=== PATIENT | female | born 1970 | race Caucasian/White ===

== ENCOUNTER 2016-10-27 23:07 | Emergency (ER) | payer OTHER ==
[2016-10-28 00:14] LABS: MEAN CORPUSCULAR HEMOGLOBIN 29.7 pg (27.0-33.0); MEAN CORPUSCULAR HGB CONC 32.8 g/dl (32.0-36.5); MEAN CORPUSCULAR VOLUME 90.6 fl (80.0-96.0); RED CELL DISTRIBUTION WIDTH 14.1 % (11.5-14.5); WHITE BLOOD COUNT 8.7 K/mm3 (4.0-10.0)
[2016-10-28 00:55] LABS: AMPHETAMINES LEVEL URINE NEGATIVE (NEGATIVE); BENZODIAZEPINES URINE NEGATIVE (NEGATIVE); COCAINE METABOLITE URINE NEGATIVE (NEGATIVE); CONTROL LINE INT CTR LINE PRESENT; METHADONE URINE NEGATIVE (NEGATIVE); OPIATES URINE NEGATIVE (NEGATIVE); TRICYCLIC ANTIDEPRESS URINE NEGATIVE (NEGATIVE)
[2016-10-28 01:04] LABS: ALBUMIN 4.3 GM/DL (3.2-5.2); ALKALINE PHOSPHATASE 52 U/L (45-117); ALT/SGPT 19 U/L (12-78); ANION GAP 12 MEQ/L (8-16); AST/SGOT 18 U/L (15-37); BILIRUBIN,DIRECT 0.2 MG/DL (0.0-0.2); BILIRUBIN,TOTAL 0.5 MG/DL (0.2-1.0); BLOOD UREA NITROGEN 7 MG/DL (7-18); CALCIUM LEVEL 9.1 MG/DL (8.5-10.1); CARBON DIOXIDE LEVEL 25 MEQ/L (21-32); CHLORIDE LEVEL 103 MEQ/L (98-107); CREATININE FOR GFR 0.86 MG/DL (0.55-1.02); GLOMERULAR FILTRATION RATE > 60.0 (>58); GLUCOSE, FASTING 156 MG/DL (70-105); POTASSIUM SERUM 3.4 MEQ/L (3.5-5.1); SODIUM LEVEL 140 MEQ/L (136-145); TOTAL PROTEIN 7.6 GM/DL (6.4-8.2)
[2016-10-28 01:54] LABS: T UPTAKE 35 % (30-39); THYROXINE (T4) 10.6 UG/DL (4.5-12.0)
--- NOTE | 2016-10-28 02:44 | EDDOCDS ---
Nurse's Notes [facility] Name: Halina Lima Age: 46 yrs Sex: Female : 1970 Arrival Date: 10/27/2016 Time: 23:07 Bed 2 Private MD: Other - Complete Info On Cds; DANAE Guerrero Diagnosis: Acute stress reaction Presentation: 10/27 23:11 Presenting complaint: Patient states: pt is concerned that is poisoning her. mlc states for the past month she has had diarrhea, states that this past week she has had severe bad breath no matter how often she brushes her teeth. also c/o of feeling diaphoretic for the past week. pt c/o dry mouth this evening. Adult Sepsis Screening: The patient does not have new or worsening altered mentation. Patient's respiratory rate is less than 22. Systolic blood pressure is greater than 100. Patient has a qSOFA score of 0- Negative Sepsis Screen. Suicide/Homicide risk assessment- the patient denies having any suicidal and/or homicidal ideations and does not present with any other emotional, behavioral or mental health complaints. Status: Patient is not a client service supervisor or dependent. Transition of care: patient was not received from another setting of care. 23:11 Acuity: JOSE GUADALUPE Level 3 [facility] 23:11 Method Of Arrival: Ambulance [facility] Triage Assessment: 23:17 General: Appears in no apparent distress, comfortable, Behavior is cooperative. Pain: mlc Location: right lower quadrant and left lower quadrant Pain currently is 5 out of 10 on a pain scale. Quality of pain is described as crampy. HIV screening NA for this visit Offered previously. The patient is triaged at the bedside. See Assessment in Nurses Notes section of ED record. Neurological: Level of Consciousness is awake, alert, obeys commands, Oriented to person, place, time, Moves all extremities. Speech is normal. Cardiovascular: Rhythm is regular. Respiratory: Airway is patent Respiratory effort is even, unlabored, Respiratory pattern is regular. THIRD MATE: 23:17 LMP 10/26/2016 mlc Historical: - Allergies: No known drug Allergies; - Home Meds: 1. Synthroid 125 mcg Oral tab 1 tab once daily 2. Tylenol PM 25-500 mg-mg/mL Oral soln (Last dose: 10/27/2016 21:00) 3. Macrobid 100 mg Oral cap 1 cap every 12 hours - PMHx: Hypothyroidism; - PSHx: Thyroid Surgery; - Social history: Smoking status: Patient states was never smoker of tobacco. Patient/guardian denies using alcohol, street drugs, No barriers to communication noted, The patient speaks fluent Kitt[place]. - Family history: Not pertinent. - : The pt / caregiver states he / she is not on anticoagulants. Home medication list is obtained from the patient. - Exposure Risk Screening:: None identified. Screenin:19 Screening information is obtained from the patient. Fall risk: No risks identified. mlc Assistance ADL's: requires no assistance with activities of daily living. Abuse/DV Screen: The patient / caregiver reports he/she is: in a living situation that causes fear, pain or injury. pt believes is poisoning her. Nutritional screening: The patient reports a change in bowel habits, reports diarrhea for 1 month, hasn't had in approx 1 week. Advance Directives: Currently, there is no health care proxy. There is no Power of Umbrella Tipper Hand. home support is adequate. Assessment: 23:39 General: Appears in no apparent distress, comfortable, Behavior is cooperative. mlc Neurological: Level of Consciousness is awake, alert, obeys commands, Oriented to person, place, time. Cardiovascular: Capillary refill < 3 seconds Heart tones S1 S2 present Rhythm is regular. Respiratory: Airway is patent Respiratory effort is even, unlabored, Respiratory pattern is regular, Breath sounds are clear bilaterally. GI: Abdomen is non- distended Bowel sounds present X 4 quads. Derm: Skin is normal. 23:39 Reassessment: pt states that she found out her was cheating on her approx 1 mlc month ago, she states she asked for a divorce. pt believes put spy-brown on her phone and then "wiped it clean" yesterday. Police state: reports changes in mental status x4 days. states patient has been charging into husbands room, thinking that they are under attack. police state patient's seemed concerned for patient's safety. . 10/28 00:11 General: Appears in no apparent distress, Iv inserted labs drawn, pt refused IV fluids sls1 at this time, aware that orders are given for fluids due to pt c/o diarrhea and fluid loss, pt reports she " has not had diarrhea in a week" provider aware and order canceled. 00:39 Reassessment: Patient appears in no apparent distress at this time. no changes since mlc prior. pt able to walk into bathroom, tolerated well. . 01:27 Reassessment: Patient appears in no apparent distress at this time. pt states she mlc "feels bad". lights dimmed for comfort and pt given water per Dr. Hansen . 02:42 General: Appears in no apparent distress, comfortable, Behavior is appropriate for age, ka4 cooperative, pleasant. Respiratory: Airway is patent Respiratory effort is even, unlabored, Respiratory pattern is regular, symmetrical. Derm: Skin is intact, is healthy with good turgor, Skin is pink, warm & dry. Mental Health Eval: 02:29 Status: The patient is not a client service supervisor or dependent. [facility]: The patient is not an established patient of [facility] Behavior[facility]. Referral Information: Evaluation referral is generated by the patient himself / herself. The patient was referred for evaluation because Pt c/o various somatic issues in past 6 weeks including diarrhea, weakness, poor appetite, and has asked spouse for divorce due to infidelity. Pt had thought that spouse may be poisoning her?. Subjective: The patients chief complaint is Pt is calm/cooperative, appropriate in conversation, states she suspected her spouse of cheating on her x 1 month ago and asked for a divorce but spouse will not william her the divorce. Pt adds that her phone was hacked yesterday and had to get a new phone today, found that there was spyware on her phone? Pt reports she does not trust her spouse at this point. Pt denies any SI/HI/AH/VH, denies substance abuse, denies any prior psych admissions or attempts at self harm, adds that she has hx of depression but does not feel depressed currently, states "I'm just stressed, there are bad things going on between my and I right now", pt denies any DV issues. Pt reports multiple somatic complaints x 6 weeks which have left her dehydrated(poor appetite/diarrhea) and ongoing dry/bad taste in mouth, no evidence of any poisoning substances per Dr. Hansen however pt did appear s/w dehydrated which would contribute to pt.'s somatic sx's/complaints. Pt can CFS, is requesting d/c home, denies any concerns returning home, declines MH referrals but is receptive to VAC info, brochure provided.. Delusions are pt was concerned that spouse may be poisoning her due to her various somatic complaints, no evidence of poisoning per Dr. Hansen. Patient's mood is anxious, Hallucinations are denied. Mental Health history: anxiety, depression, Mental Health Admissions: None. Current Outpatient Mental Health Services: None. Current living environment is The patient currently lives with his / her children. with his / her spouse, . The patient is . Patient presents to Emergency Department with the following symptoms within the past 2 weeks: decreased appetite, delusions of persecution, marital problem. Substance abuse: Pt denies. Mental status exam: Patients appearance is appropriate, Patient's behavior is cooperative, Speech is normal. Affect is appropriate. Mood is anxious. Hallucinations are denied. Appetite is poor. Memory is good. Energy level is tires easily. Content of thought is somatic preoccupation. somatic Thought process is intact. Cognitive level is oriented to person, place, time and situation Patient's insight is fair. Judgement is fair. Rapport with interviewer is good. Suicidal Ideation is denied. Homicidal ideation is denied. Disposition: Medically cleared for disposition by Ramirez Hansen DO Psychiatric Consult is deferred per ED physician, Dr Hansen. The patient has a safe destination which is home via cab, pt can CFS, denies SI/HI, has VAC brochure, declines any other interventions. [facility] Admission Criteria: Not Applicable. [place] because the patient does not display any suicidal or homicidal ideations and does not pose a risk to self or others. DSM-V Differential Diagnosis: Acute Stress Disorder (F 43.0). Insurance Pre-Certification: Not Required. Vital Signs: 10/27 23:14 BP 166 / 80; Pulse 78; Resp 18; Temp 96.9(T); Pulse Ox 99% on R/A; Weight 69.4 kg (R); jessica Height 5 ft. 6 in. (167.64 cm) (R); Pain 4/10; 23:15 BP 164 / 92 (auto/); mlc 23:16 Pulse 77 MON; Pulse Ox 98% ; mlc 23:30 BP 152 / 83 (auto/); mlc 23:31 Pulse 76 MON; Pulse Ox 99% ; mlc 23:45 BP 178 / 89 (auto/); mlc 23:46 Pulse 77 MON; Pulse Ox 100% ; mlc 10/28 00:00 BP 165 / 88 (auto/); mlc 00:01 Pulse 74 MON; Pulse Ox 100% ; mlc 00:15 BP 172 / 101 (auto/); mlc 00:17 Pulse 75 MON; Pulse Ox 100% ; mlc 00:30 BP 156 / 96 (auto/); mlc 00:31 Pulse 73 MON; Pulse Ox 100% ; mlc 00:45 BP 160 / 94 (auto/); mlc 00:46 Pulse 78 MON; Pulse Ox 99% ; mlc 01:00 BP 162 / 92 (auto/); mlc 01:01 Pulse 81 MON; Pulse Ox 99% ; mlc 01:24 BP 153 / 79 (auto/); mlc 01:25 Pulse Ox 99% ; mlc 02:35 BP 162 / 92; Pulse 67; Resp 18; Temp 97.2(O); Pulse Ox 99% on R/A; jessica 10/27 23:14 Body Mass Index 24.69 (69.40 kg, 167.64 cm) jessica Vitals: 10/27 23:17 Log In Time N/A - ambulance arrival. [facility] ED Course: 23:09 Patient visited by Halina Cabral PCA. tmm1 23:09 Patient moved to Waiting tmm1 23:10 Other - Complete Info On Cds is Private Physician. tmm1 23:10 DANAE Guerrero is Private Physician. tmm1 23:11 Erica Bryant,JOY is Primary Nurse. tmm1 23:11 Ramirez Hansen DO is Attending Physician. cs11 23:11 Patient visited by Ramirez Hansen DO. cs11 23:11 Patient moved to 2 tmm1 23:14 Triage Initiated [facility] 23:14 Pt greeted and oriented to ED. Patient advised of names of staff involved in care, jessica location of call frankel, wait times and NPO status. Patient has correct armband on for positive identification. Placed in gown. Bed in low position. Call light in reach. Side rails up X2. monitoring engineer on. Pulse ox on. NIBP on. 23:15 Patient visited by Saira Ross PCA. jessica 23:19 The patient / caregiver is instructed regarding the plan of care and ED course. mlc 23:21 Patient visited by Erica Bryant,JOY. mlc 23:43 Patient visited by Erica Bryant RN. mlc 10/28 00:09 Patient visited by Saira Ross PCA. jessica 00:09 EKG done. (by ED staff). Reviewed by Ramirez Hansen DO. jessica 00:10 Acetaminophen Level Sent. sls1 00:10 Basic Metabolic Profile Sent. sls1 00:11 Complete Blood Count Sent. sls1 00:11 Ethyl Alcohol (ethanol) Sent. sls1 00:11 Liver Profile Sent. sls1 00:11 Salicylate Level Sent. sls1 00:12 Inserted saline lock: 20 gauge in right antecubital area and blood collected. The sls1 patient tolerated the procedure well. 00:13 Patient visited by Cecille Jones RN. sls1 00:13 Labs drawn. (by ED staff). Sent per order to lab. sls1 00:39 Drug Eval Toxicology ED Only Sent. mlc 00:40 [facility] Payment Agreement was scanned into [facility] and attached to record. lja 00:41 Patient visited by Erica Bryant RN. mlc 01:28 Patient visited by Erica Bryant RN. mlc 02:20 Referral list, As provided by [facility] is Referral Physician. cs11 02:35 Patient visited by Saira Ross PCA. jessica 02:42 Discontinued IV lock intact, bleeding controlled, pressure dressing applied, No ka4 redness/swelling at site. No procedures done that require assistance. Administered Medications: 00:11 CANCELLED (Patient Refused): NS 0.9% 1000 ml IV at bolus once sls1 Order Results: Lab Order: Acetaminophen Level; SPEC'M 10/28/16 00:06 Test: ACETAMINOPHEN LEVEL; Value: 12.8; Range: 10.0-30.0; Units: UG/ML; Status: F Lab Order: Basic Metabolic Profile; SPEC'M 10/28/16 00:06 Test: GLUCOSE, FASTING; Value: 156; Range: 70-105; Abnormal: Above high normal; Units: MG/DL; Status: F Test: BLOOD UREA NITROGEN; Value: 7; Range: 7-18; Units: MG/DL; Status: F Test: CREATININE FOR GFR; Value: 0.86; Range: 0.55-1.02; Units: MG/DL; Status: F Test: GLOMERULAR FILTRATION RATE; Value: > 60.0; Range: >58; Status: F Test: SODIUM LEVEL; Value: 140; Range: 136-145; Units: MEQ/L; Status: F Test: POTASSIUM SERUM; Value: 3.4; Range: 3.5-5.1; Abnormal: Below low normal; Units: MEQ/L; Status: F Test: CHLORIDE LEVEL; Value: 103; Range: 98-107; Units: MEQ/L; Status: F Test: CARBON DIOXIDE LEVEL; Value: 25; Range: 21-32; Units: MEQ/L; Status: F Test: ANION GAP; Value: 12; Range: 8-16; Units: MEQ/L; Status: F Test: CALCIUM LEVEL; Value: 9.1; Range: 8.5-10.1; Units: MG/DL; Status: F Test Note: ; Units are mL/min/1.73 m2 Chronic Kidney Disease Staging per NKF: Stage I & II GFR >=60 Normal to Mildly Decreased Stage III GFR 30-59 Moderately Decreased Stage IV GFR 15-29 Severely Decreased Stage V GFR <15 Very Little GFR Left ESRD GFR <15 on FOREST OFFICER Lab Order: Complete Blood Count; [facility]' 10/28/16 00:06 Test: WHITE BLOOD COUNT; Value: 8.7; Range: 4.0-10.0; Units: K/mm3; Status: F Test: RED BLOOD COUNT; Value: 4.18; Range: 4.00-5.40; Units: M/mm3; Status: F Test: HEMOGLOBIN; Value: 12.4; Range: 12.0-16.0; Units: g/dl; Status: F Test: HEMATOCRIT; Value: 37.9; Range: 36.0-47.0; Units: %; Status: F Test: MEAN CORPUSCULAR VOLUME; Value: 90.6; Range: 80.0-96.0; Units: fl; Status: F Test: MEAN CORPUSCULAR HEMOGLOBIN; Value: 29.7; Range: 27.0-33.0; Units: pg; Status: F Test: MEAN CORPUSCULAR HGB CONC; Value: 32.8; Range: 32.0-36.5; Units: g/dl; Status: F Test: RED CELL DISTRIBUTION WIDTH; Value: 14.1; Range: 11.5-14.5; Units: %; Status: F Test: PLATELET COUNT, AUTOMATED; Value: 243; Range: 150-450; Units: k/mm3; Status: F Lab Order: Drug Eval Toxicology ED Only; SPEC'M 10/28/16 00:36 Test: AMPHETAMINES LEVEL URINE; Value: NEGATIVE; Range: NEGATIVE; Status: F Test: BARBITURATES URINE; Value: NEGATIVE; Range: NEGATIVE; Status: F Test: BENZODIAZEPINES URINE; Value: NEGATIVE; Range: NEGATIVE; Status: F Test: CANNABINOIDS URINE; Value: NEGATIVE; Range: NEGATIVE; Status: F Test: COCAINE METABOLITE URINE; Value: NEGATIVE; Range: NEGATIVE; Status: F Test: METHADONE URINE; Value: NEGATIVE; Range: NEGATIVE; Status: F Test: OPIATES URINE; Value: NEGATIVE; Range: NEGATIVE; Status: F Test: TRICYCLIC ANTIDEPRESS URINE; Value: NEGATIVE; Range: NEGATIVE; Status: F Test Note: ; ALL PRESUMPTIVE POSITIVE FINDINGS ARE UNCONFIRMED NORMAL VALUES THRESHOLD IN NG/ML AMPHETAMINES 1000 METHAMPHETAMINES 1000 BARBITURATES 300 BENZODIAZEPINES 300 CANNABINOIDS (THC) 50 COCAINE METABOLITE 300 METHADONE 300 OPIATES 300 PHENCYCLIDINE 25 TRICYCLIC ANTIDEPRESSANTS 1000 RESULTS ARE FOR MEDICAL PURPOSES ONLY. ALL URINE SPECIMENS WILL BE SAVED FOR 3 DAYS. IF CONFIRMATION OF A PRESUMPTIVE POSTIVE SCREEN RESULT IS DESIRED, CALL CHEMISTRY ([phone]) AND REQUEST URINE TO BE SENT TO REFERENCE LAB. FOR A LIST OF CLOSELY RELATED COMPOUNDS PLEASE CALL THE LAB. Lab Order: Ethyl Alcohol (ethanol); SPEC'M 10/28/16 00:06 Test: ETHYL ALCOHOL (ETHANOL); Value: < 0.003; Range: 0.000-0.010; Units: %; Status: F Lab Order: Liver Profile; SPEC'M 10/28/16 00:06 Test: AST/SGOT; Value: 18; Range: 15-37; Units: U/L; Status: F Test: ALT/SGPT; Value: 19; Range: 12-78; Units: U/L; Status: F Test: ALKALINE PHOSPHATASE; Value: 52; Range: 45-117; Units: U/L; Status: F Test: BILIRUBIN,TOTAL; Value: 0.5; Range: 0.2-1.0; Units: MG/DL; Status: F Test: BILIRUBIN,DIRECT; Value: 0.2; Range: 0.0-0.2; Units: MG/DL; Status: F Test: TOTAL PROTEIN; Value: 7.6; Range: 6.4-8.2; Units: GM/DL; Status: F Test: ALBUMIN; Value: 4.3; Range: 3.2-5.2; Units: GM/DL; Status: F Test: ALBUMIN/GLOBULIN RATIO; Value: 1.30; Range: 1.00-1.93; Status: F Lab Order: Salicylate Level; SPEC'M 10/28/16 00:06 Test: SALICYLATE LEVEL; Value: < 1.7; Range: 5.0-30.0; Abnormal: Below low normal; Units: MG/DL; Status: F Lab Order: THYROID PROFILE; SPEC'M 10/28/16 00:06 Test: T UPTAKE; Value: 35; Range: 30-39; Units: %; Status: F Test: THYROXINE (T4); Value: 10.6; Range: 4.5-12.0; Units: UG/DL; Status: F Test: FREE THYROXINE INDEX; Value: 3.7; Range: 1.3-4.8; Units: %; Status: F Test: THYROID STIMULATING HORMONE; Value: 10.700; Range: 0.358-3.740; Abnormal: Above high normal; Units: uIU/ML; Status: F Outcome: 02:20 Discharge ordered by Provider. cs11 02:41 Property :Personal belongings accompany Pt. ka4 02:42 Discharge Assessment: Patient awake and alert. obeys commands, patient administered ka4 narcotics - no. The following High Risk Discharge criteria are identified: None. Discharged to home ambulatory. Condition: good Condition: stable. Discharge instructions given to patient, Instructed on discharge instructions, follow up and referral plans. Demonstrated understanding of instructions, Pt was receptive of discharge instructions/ teaching. No special radiology studies were completed. 02:43 Patient left the ED. ka4 Signatures: James Almeida, PSA PSA cl Saira Ross, TOUR CONSULTANT TOUR CONSULTANT jessica Cecille Jones RN RN sls1 Ramirez Hansen, DO cs11 Halina Cabral, TOUR CONSULTANT TOUR CONSULTANT tmm1 Tamara Richards,RESIDENTIAL AIR SEALING TECHNICIAN RESIDENTIAL AIR SEALING TECHNICIAN ka4 Erica Bryant RN RN mlc Arel, Susan gil Corrections: (The following items were deleted from the chart) 01:45 01:40 THYROID PROFILE+LAB sent. [facility] EDMS 01:46 00:11 THYROID STIMULATING HORMONE+LAB sent. sls1 EDMS MTDD
--- NOTE | 2016-10-28 02:44 | EDDOCDS ---
Physician Documentation [facility] Name: Halina Lima Age: 46 yrs Sex: Female : 1970 Arrival Date: 10/27/2016 Time: 23:07 Bed 2 Private MD: Other - Complete Info On Cds; Yolanda [facility] Disposition: 10/28/16 02:20 Discharged to Home/Self Care. Impression: Acute stress reaction. - Condition is Stable. - Medication Reconciliation, Local Pharmacy Hours form. - Follow up: Referral list, As provided by PFS; When: Call to arrange an appointment; Reason: Recheck today's complaints. - Problem is an ongoing problem. - Symptoms are unchanged. Historical: - Allergies: No known drug Allergies; - Home Meds: 1. Synthroid 125 mcg Oral tab 1 tab once daily 2. Tylenol PM 25-500 mg-mg/mL Oral soln (Last dose: 10/27/2016 21:00) 3. Macrobid 100 mg Oral cap 1 cap every 12 hours - PMHx: Hypothyroidism; - PSHx: Thyroid Surgery; - Social history: Smoking status: Patient states was never smoker of tobacco. Patient/guardian denies using alcohol, street drugs, No barriers to communication noted, The patient speaks fluent Portuguese. - Family history: Not pertinent. - : The pt / caregiver states he / she is not on anticoagulants. Home medication list is obtained from the patient. - Exposure Risk Screening:: None identified. 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 6 in. (167.64 cm) (R); Pain 4/10; 23:15 BP 164 / 92 (auto/); mlc 23:16 Pulse 77 MON; Pulse Ox 98% ; mlc 23:30 BP 152 / 83 (auto/); mlc 23:31 Pulse 76 MON; Pulse Ox 99% ; mlc 23:45 BP 178 / 89 (auto/); mlc 23:46 Pulse 77 MON; Pulse Ox 100% ; mlc 10/28 00:00 BP 165 / 88 (auto/); mlc 00:01 Pulse 74 MON; Pulse Ox 100% ; mlc 00:15 BP 172 / 101 (auto/); mlc 00:17 Pulse 75 MON; Pulse Ox 100% ; mlc 00:30 BP 156 / 96 (auto/); mlc 00:31 Pulse 73 MON; Pulse Ox 100% ; mlc 00:45 BP 160 / 94 (auto/); mlc 00:46 Pulse 78 MON; Pulse Ox 99% ; mlc 01:00 BP 162 / 92 (auto/); mlc 01:01 Pulse 81 MON; Pulse Ox 99% ; mlc 01:24 BP 153 / 79 (auto/); mlc 01:25 Pulse Ox 99% ; mlc 02:35 BP 162 / 92; Pulse 67; Resp 18; Temp 97.2(O); Pulse Ox 99% on R/A; jessica 10/27 23:14 Body Mass Index 24.69 (69.40 kg, 167.64 cm) jessica MDM: 10/27 23:52 Consult PFS/PSA/Inspector Cold Working ordered. cs11 23:52 Consult PFS/PSA/Inspector Cold Working: Patient's case requires discussion with on-call [facility] Psychiatrist ordered. 23:52 PSA/PFS to call Nursing Jack Spinner, to enter patient data on [place] Safe Act if patient cs11 involuntarily admitted or transferred for SI or HI ordered. 23:52 Confirm accurate psychiatric medication list and times of last dosage ordered. cs11 23:52 Detain Pt Until Medically/PFS Cleared ordered. cs11 23:52 IV Saline Lock ordered. cs11 23:53 Acetaminophen Level Ordered. EDMS 23:53 Basic Metabolic Profile Ordered. EDMS 23:53 Complete Blood Count Ordered. EDMS 23:53 Drug Eval Toxicology ED Only Ordered. EDMS 23:53 Ethyl Alcohol (ethanol) Ordered. EDMS 23:53 Liver Profile Ordered. EDMS 23:53 Salicylate Level Ordered. EDMS 23:54 ECG WITH READING ER PHYS+CARDIAG ordered. EDMS 10/28 00:40 [facility] Payment Agreement was scanned into [employer] and attached to record. lja 00:40 Financial registration complete. lja 01:32 Basic Metabolic Profile Reviewed. cs11 01:32 Salicylate Level Reviewed. cs11 01:32 Acetaminophen Level Reviewed. cs11 01:32 Complete Blood Count Reviewed. cs11 01:32 Drug Eval Toxicology ED Only Reviewed. cs11 01:32 Ethyl Alcohol (ethanol) Reviewed. cs11 01:32 Liver Profile Reviewed. cs11 01:46 THYROID PROFILE Ordered. EDMS 01:55 Basic Metabolic Profile Reviewed. cs11 01:55 Salicylate Level Reviewed. cs11 01:55 Acetaminophen Level Reviewed. cs11 01:55 Ethyl Alcohol (ethanol) Reviewed. cs11 01:55 Liver Profile Reviewed. cs11 02:03 Basic Metabolic Profile Reviewed. cs11 02:03 Salicylate Level Reviewed. cs11 02:03 THYROID PROFILE Reviewed. cs11 02:03 Acetaminophen Level Reviewed. cs11 02:03 Ethyl Alcohol (ethanol) Reviewed. cs11 02:03 Liver Profile Reviewed. cs11 02:04 Consult PFS/PSA/Socail Worker: Cleared medically for eval ordered. cs11 02:28 Consult PFS/PSA/Socail Worker: Cleared medically for eval complete. cl 02:28 Consult PFS/PSA/Inspector Cold Working complete. cl 02:28 Consult PFS/PSA/Inspector Cold Working: Patient's case requires discussion with on-call cl Psychiatrist complete. 02:28 PSA/PFS to call Nursing Jack Spinner, to enter patient data [place] Safe [place] if patient cl involuntarily admitted or transferred for SI or HI complete. Administered Medications: 00:11 CANCELLED (Patient Refused): NS 0.9% 1000 ml IV at bolus once sls1 Signatures: Dispatcher [employer] EDMS James Almeida PSA PSA cl Ramirez Hansen, DO cs11 Tamara Richards,COACH WIRER COACH WIRER kaErica TorrezRN RN [facility] [place] [place] Aremi, Cecille Recinos RN sls1 The chart was reviewed and I authenticate all verbal orders and agree with the evaluation and treatment provided.Corrections: (The following items were deleted from the chart) 00:11 10/27 23:52 NS 0.9% 1000 ml IV at bolus once ordered. cs11 sls1 10/28 01:45 01:33 THYROID PROFILE+LAB ordered. EDMS EDMS 01:46 10/27 23:53 THYROID STIMULATING HORMONE+LAB ordered. EDMS EDMS 10/28 01:46 01:32 THYROID STIMULATING HORMONE+LAB reviewed. [facility] EDMS Attachments: 00:40 [facility] Payment Agreement jeffery MTDD
--- NOTE | 2016-10-28 10:09 | ECGEPIP ---
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
--- NOTE | 2016-10-30 03:43 | EDDOCDS ---
Nurse's Notes [facility] Name: Halina Lima Age: 46 yrs Sex: Female : 1970 Arrival Date: 10/27/2016 Time: 23:07 Bed 2 Private MD: Other - Complete Info On Cds; DANAE Guerrero Diagnosis: Acute stress reaction Presentation: 10/27 23:11 Presenting complaint: Patient states: pt is concerned that is poisoning her. mlc states for the past month she has had diarrhea, states that this past week she has had severe bad breath no matter how often she brushes her teeth. also c/o of feeling diaphoretic for the past week. pt c/o dry mouth this evening. Adult Sepsis Screening: The patient does not have new or worsening altered mentation. Patient's respiratory rate is less than 22. Systolic blood pressure is greater than 100. Patient has a qSOFA score of 0- Negative Sepsis Screen. Suicide/Homicide risk assessment- the patient denies having any suicidal and/or homicidal ideations and does not present with any other emotional, behavioral or mental health complaints. Status: Patient is not a contract serviceman or dependent. Transition of care: patient was not received from another setting of care. 23:11 Acuity: JOSE GUADALUPE Level 3 [facility] [place] 23:11 Method Of Arrival: Amb[place] [facility] [place] Triage Assessment: 23:17 General: Appears in no apparent distress, comfortable, Behavior is cooperative. Pain: mlc Location: right lower quadrant and left lower quadrant Pain currently is 5 out of 10 on a pain scale. Quality of pain is described as crampy. HIV screening NA for this visit Offered previously. The patient is triaged at the bedside. See Assessment in Nurses Notes section of ED record. Neurological: Level of Consciousness is awake, alert, obeys commands, Oriented to person, place, time, Moves all extremities. Speech is normal. Cardiovascular: Rhythm is regular. Respiratory: Airway is patent Respiratory effort is even, unlabored, Respiratory pattern is regular. 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 Synthroid 125 mcg Oral tab 1 tab once daily 2. Tylenol PM 25-500 mg-mg/mL Oral soln (Last dose: 10/27/2016 21:00) 3. Macrobid 100 mg Oral cap 1 cap every 12 hours - PMHx: Hypothyroidism; - PSHx: Thyroid Surgery; - Social history: Smoking status: Patient states was never smoker of tobacco. Patient/guardian denies using alcohol, street drugs, No barriers to communication noted, The patient speaks fluent Peruvian. - Family history: Not pertinent. - : The pt / caregiver states he / she is not on anticoagulants. Home medication list is obtained from the patient. - Exposure Risk Screening:: None identified. Screenin:19 Screening information is obtained from the patient. Fall risk: No risks identified. mlc Assistance ADL's: requires no assistance with activities of daily living. Abuse/DV Screen: The patient / caregiver reports he/she is: in a living situation that causes fear, pain or injury. pt believes is poisoning her. Nutritional screening: The patient reports a change in bowel habits, reports diarrhea for 1 month, hasn't had in approx 1 week. Advance Directives: Currently, there is no health care proxy. There is no Power of Blood Bank Laboratory Technician. home support is adequate. Assessment: 23:39 General: Appears in no apparent distress, comfortable, Behavior is cooperative. mlc Neurological: Level of Consciousness is awake, alert, obeys commands, Oriented to person, place, time. Cardiovascular: Capillary refill < 3 seconds Heart tones S1 S2 present Rhythm is regular. Respiratory: Airway is patent Respiratory effort is even, unlabored, Respiratory pattern is regular, Breath sounds are clear bilaterally. GI: Abdomen is non- distended Bowel sounds present X 4 quads. Derm: Skin is normal. 23:39 Reassessment: pt states that she found out her was cheating on her approx 1 mlc month ago, she states she asked for a divorce. pt believes put spy-brown on her phone and then "wiped it clean" yesterday. Police state: reports changes in mental status x4 days. states patient has been charging into husbands room, thinking that they are under attack. police state patient's seemed concerned for patient's safety. . 10/28 00:11 General: Appears in no apparent distress, Iv inserted labs drawn, pt refused IV fluids sls1 at this time, aware that orders are given for fluids due to pt c/o diarrhea and fluid loss, pt reports she " has not had diarrhea in a week" provider aware and order canceled. 00:39 Reassessment: Patient appears in no apparent distress at this time. no changes since mlc prior. pt able to walk into bathroom, tolerated well. . 01:27 Reassessment: Patient appears in no apparent distress at this time. pt states she mlc "feels bad". lights dimmed for comfort and pt given water per Dr. Beal . 02:42 General: Appears in no apparent distress, comfortable, Behavior is appropriate for age, ka4 cooperative, pleasant. Respiratory: Airway is patent Respiratory effort is even, unlabored, Respiratory pattern is regular, symmetrical. Derm: Skin is intact, is healthy with good turgor, Skin is pink, warm & dry. Mental Health Eval: 02:29 Status: The patient is not a contract serviceman or dependent. [facility]: The patient is not an established patient of [facility] Behavior[facility]. Referral Information: Evaluation referral is generated by the patient himself / herself. The patient was referred for evaluation because Pt c/o various somatic issues in past 6 weeks including diarrhea, weakness, poor appetite, and has asked spouse for divorce due to infidelity. Pt had thought that spouse may be poisoning her?. Subjective: The patients chief complaint is Pt is calm/cooperative, appropriate in conversation, states she suspected her spouse of cheating on her x 1 month ago and asked for a divorce but spouse will not william her the divorce. Pt adds that her phone was hacked yesterday and had to get a new phone today, found that there was spyware on her phone? Pt reports she does not trust her spouse at this point. Pt denies any SI/HI/AH/VH, denies substance abuse, denies any prior psych admissions or attempts at self harm, adds that she has hx of depression but does not feel depressed currently, states "I'm just stressed, there are bad things going on between my and I right now", pt denies any DV issues. Pt reports multiple somatic complaints x 6 weeks which have left her dehydrated(poor appetite/diarrhea) and ongoing dry/bad taste in mouth, no evidence of any poisoning substances per Dr. Beal however pt did appear s/w dehydrated which would contribute to pt.'s somatic sx's/complaints. Pt can CFS, is requesting d/c home, denies any concerns returning home, declines MH referrals but is receptive to VAC info, brochure provided.. Delusions are pt was concerned that spouse may be poisoning her due to her various somatic complaints, no evidence of poisoning per Dr. Beal. Patient's mood is anxious, Hallucinations are denied. Mental Health history: anxiety, depression, Mental Health Admissions: None. Current Outpatient Mental Health Services: None. Current living environment is The patient currently lives with his / her children. with his / her spouse, . The patient is . Patient presents to Emergency Department with the following symptoms within the past 2 weeks: decreased appetite, delusions of persecution, marital problem. Substance abuse: Pt denies. Mental status exam: Patients appearance is appropriate, Patient's behavior is cooperative, Speech is normal. Affect is appropriate. Mood is anxious. Hallucinations are denied. Appetite is poor. Memory is good. Energy level is tires easily. Content of thought is somatic preoccupation. somatic Thought process is intact. Cognitive level is oriented to person, place, time and situation Patient's insight is fair. Judgement is fair. Rapport with interviewer is good. Suicidal Ideation is denied. Homicidal ideation is denied. Disposition: Medically cleared for disposition by Maria A Beal DO Psychiatric Consult is deferred per ED physician, Dr Beal. The patient has a safe destination which is home via cab, pt can CFS, denies SI/HI, has VAC brochure, declines any other interventions. [facility] Admission Criteria: Not Applicable. [place]: [place] is not applicable because the patient does not display any suicidal or homicidal ideations and does not pose a risk to self or others. DSM-V Differential Diagnosis: Acute Stress Disorder (F 43.0). Insurance Pre-Certification: Not Required. Vital Signs: 10/27 23:14 BP 166 / 80; Pulse 78; Resp 18; Temp 96.9(T); Pulse Ox 99% on R/A; Weight 69.4 kg (R); jessica Height 5 ft. 6 in. (167.64 cm) (R); Pain 4/10; 23:15 BP 164 / 92 (auto/); mlc 23:16 Pulse 77 MON; Pulse Ox 98% ; mlc 23:30 BP 152 / 83 (auto/); mlc 23:31 Pulse 76 MON; Pulse Ox 99% ; mlc 23:45 BP 178 / 89 (auto/); mlc 23:46 Pulse 77 MON; Pulse Ox 100% ; mlc 10/28 00:00 BP 165 / 88 (auto/); mlc 00:01 Pulse 74 MON; Pulse Ox 100% ; mlc 00:15 BP 172 / 101 (auto/); mlc 00:17 Pulse 75 MON; Pulse Ox 100% ; mlc 00:30 BP 156 / 96 (auto/); mlc 00:31 Pulse 73 MON; Pulse Ox 100% ; mlc 00:45 BP 160 / 94 (auto/); mlc 00:46 Pulse 78 MON; Pulse Ox 99% ; mlc 01:00 BP 162 / 92 (auto/); mlc 01:01 Pulse 81 MON; Pulse Ox 99% ; mlc 01:24 BP 153 / 79 (auto/); mlc 01:25 Pulse Ox 99% ; mlc 02:35 BP 162 / 92; Pulse 67; Resp 18; Temp 97.2(O); Pulse Ox 99% on R/A; jessica 10/27 23:14 Body Mass Index 24.69 (69.40 kg, 167.64 cm) jessica Vitals: 10/27 23:17 Log In Time N/A - ambulance arrival. [facility] [place] ED Course: 23:09 Patient visited by Halina Cabral PCA. tmm1 23:09 Patient moved to Waiting tmm1 23:10 Other - Complete Info On Cds is Private Physician. tmm1 23:10 DANAE Guerrero is Private Physician. tmm1 23:11 Erica Bryant,JOY is Primary Nurse. tmm1 23:11 Maria A Beal DO is Attending Physician. cs11 23:11 Patient visited by Maria A Beal DO. cs11 23:11 Patient moved to 2 tmm1 23:14 Triage Initiated [facility] [place] 23:14 Pt greeted and oriented to ED. Patient advised of names of staff involved in care, jessica location of call frankel, wait times and NPO status. Patient has correct armband on for positive identification. Placed in gown. Bed in low position. Call light in reach. Side rails up X2. panel monitor on. Pulse ox on. NIBP on. 23:15 Patient visited by Saira Ross PCA. jessica 23:19 The patient / caregiver is instructed regarding the plan of care and ED course. mlc 23:21 Patient visited by Erica Bryant,JOY. mlc 23:43 Patient visited by Erica Bryant RN. mlc 10/28 00:09 Patient visited by Saira Ross PCA. jessica 00:09 EKG done. (by ED staff). Reviewed by Maria A Beal DO. jessica 00:10 Acetaminophen Level Sent. sls1 00:10 Basic Metabolic Profile Sent. sls1 00:11 Complete Blood Count Sent. sls1 00:11 Ethyl Alcohol (ethanol) Sent. sls1 00:11 Liver Profile Sent. sls1 00:11 Salicylate Level Sent. sls1 00:12 Inserted saline lock: 20 gauge in right antecubital area and blood collected. The sls1 patient tolerated the procedure well. 00:13 Patient visited by Cecille Jones RN. sls1 00:13 Labs drawn. (by ED staff). Sent per order to lab. sls1 00:39 Drug Eval Toxicology ED Only Sent. mlc 00:40 [facility] Payment Agreement was scanned into [employer] and attached to record. lja 00:41 Patient visited by Erica Bryant RN. mlc 01:28 Patient visited by Erica Bryant RN. mlc 02:20 Referral list, As provided by [facility] is Referral Physician. cs11 02:35 Patient visited by Saira Ross PCA. jessica 02:42 Discontinued IV lock intact, bleeding controlled, pressure dressing applied, No ka4 redness/swelling at site. No procedures done that require assistance. 05:58 T-Sheet-- Draft Copy was scanned into [employer] and attached to record. hs2 10:20 EKG-ADULT Returned. EDMS 12:03 ECG/EKG was scanned into [employer] and attached to record. gb Administered Medications: 00:11 CANCELLED (Patient Refused): NS 0.9% 1000 ml IV at bolus once sls1 Order Results: Lab Order: Acetaminophen Level; SPEC'M 10/28/16 00:06 Test: ACETAMINOPHEN LEVEL; Value: 12.8; Range: 10.0-30.0; Units: UG/ML; Status: F Lab Order: Basic Metabolic Profile; SPEC'M 10/28/16 00:06 Test: GLUCOSE, FASTING; Value: 156; Range: 70-105; Abnormal: Above high normal; Units: MG/DL; Status: F Test: BLOOD UREA NITROGEN; Value: 7; Range: 7-18; Units: MG/DL; Status: F Test: CREATININE FOR GFR; Value: 0.86; Range: 0.55-1.02; Units: MG/DL; Status: F Test: GLOMERULAR FILTRATION RATE; Value: > 60.0; Range: >58; Status: F Test: SODIUM LEVEL; Value: 140; Range: 136-145; Units: MEQ/L; Status: F Test: POTASSIUM SERUM; Value: 3.4; Range: 3.5-5.1; Abnormal: Below low normal; Units: MEQ/L; Status: F Test: CHLORIDE LEVEL; Value: 103; Range: 98-107; Units: MEQ/L; Status: F Test: CARBON DIOXIDE LEVEL; Value: 25; Range: 21-32; Units: MEQ/L; Status: F Test: ANION GAP; Value: 12; Range: 8-16; Units: MEQ/L; Status: F Test: CALCIUM LEVEL; Value: 9.1; Range: 8.5-10.1; Units: MG/DL; Status: F Test Note: ; Units are mL/min/1.73 m2 Chronic Kidney Disease Staging per NKF: Stage I & II GFR >=60 Normal to Mildly Decreased Stage III GFR 30-59 Moderately Decreased Stage IV GFR 15-29 Severely Decreased Stage V GFR <15 Very Little GFR Left ESRD GFR <15 on GLASS MOLD REPAIRER Lab Order: Complete Blood Count; [facility]'10/28/16 00:06 Test: WHITE BLOOD COUNT; Value: 8.7; Range: 4.0-10.0; Units: K/mm3; Status: F Test: RED BLOOD COUNT; Value: 4.18; Range: 4.00-5.40; Units: M/mm3; Status: F Test: HEMOGLOBIN; Value: 12.4; Range: 12.0-16.0; Units: g/dl; Status: F Test: HEMATOCRIT; Value: 37.9; Range: 36.0-47.0; Units: %; Status: F Test: MEAN CORPUSCULAR VOLUME; Value: 90.6; Range: 80.0-96.0; Units: fl; Status: F Test: MEAN CORPUSCULAR HEMOGLOBIN; Value: 29.7; Range: 27.0-33.0; Units: pg; Status: F Test: MEAN CORPUSCULAR HGB CONC; Value: 32.8; Range: 32.0-36.5; Units: g/dl; Status: F Test: RED CELL DISTRIBUTION WIDTH; Value: 14.1; Range: 11.5-14.5; Units: %; Status: F Test: PLATELET COUNT, AUTOMATED; Value: 243; Range: 150-450; Units: k/mm3; Status: F Lab Order: Drug Eval Toxicology ED Only; SPEC'M 10/28/16 00:36 Test: AMPHETAMINES LEVEL URINE; Value: NEGATIVE; Range: NEGATIVE; Status: F Test: BARBITURATES URINE; Value: NEGATIVE; Range: NEGATIVE; Status: F Test: BENZODIAZEPINES URINE; Value: NEGATIVE; Range: NEGATIVE; Status: F Test: CANNABINOIDS URINE; Value: NEGATIVE; Range: NEGATIVE; Status: F Test: COCAINE METABOLITE URINE; Value: NEGATIVE; Range: NEGATIVE; Status: F Test: METHADONE URINE; Value: NEGATIVE; Range: NEGATIVE; Status: F Test: OPIATES URINE; Value: NEGATIVE; Range: NEGATIVE; Status: F Test: TRICYCLIC ANTIDEPRESS URINE; Value: NEGATIVE; Range: NEGATIVE; Status: F Test Note: ; ALL PRESUMPTIVE POSITIVE FINDINGS ARE UNCONFIRMED NORMAL VALUES THRESHOLD IN NG/ML AMPHETAMINES 1000 METHAMPHETAMINES 1000 BARBITURATES 300 BENZODIAZEPINES 300 CANNABINOIDS (THC) 50 COCAINE METABOLITE 300 METHADONE 300 OPIATES 300 PHENCYCLIDINE 25 TRICYCLIC ANTIDEPRESSANTS 1000 RESULTS ARE FOR MEDICAL PURPOSES ONLY. ALL URINE SPECIMENS WILL BE SAVED FOR 3 DAYS. IF CONFIRMATION OF A PRESUMPTIVE POSTIVE SCREEN RESULT IS DESIRED, CALL CHEMISTRY ([phone]) AND REQUEST URINE TO BE SENT TO REFERENCE LAB. FOR A LIST OF CLOSELY RELATED COMPOUNDS PLEASE CALL THE LAB. Lab Order: Ethyl Alcohol (ethanol); SPEC'M 10/28/16 00:06 Test: ETHYL ALCOHOL (ETHANOL); Value: < 0.003; Range: 0.000-0.010; Units: %; Status: F Lab Order: Liver Profile; SPEC'M 10/28/16 00:06 Test: AST/SGOT; Value: 18; Range: 15-37; Units: U/L; Status: F Test: ALT/SGPT; Value: 19; Range: 12-78; Units: U/L; Status: F Test: ALKALINE PHOSPHATASE; Value: 52; Range: 45-117; Units: U/L; Status: F Test: BILIRUBIN,TOTAL; Value: 0.5; Range: 0.2-1.0; Units: MG/DL; Status: F Test: BILIRUBIN,DIRECT; Value: 0.2; Range: 0.0-0.2; Units: MG/DL; Status: F Test: TOTAL PROTEIN; Value: 7.6; Range: 6.4-8.2; Units: GM/DL; Status: F Test: ALBUMIN; Value: 4.3; Range: 3.2-5.2; Units: GM/DL; Status: F Test: ALBUMIN/GLOBULIN RATIO; Value: 1.30; Range: 1.00-1.93; Status: F Lab Order: Salicylate Level; SPEC'M 10/28/16 00:06 Test: SALICYLATE LEVEL; Value: < 1.7; Range: 5.0-30.0; Abnormal: Below low normal; Units: MG/DL; Status: F Lab Order: THYROID PROFILE; SPEC'M 10/28/16 00:06 Test: T UPTAKE; Value: 35; Range: 30-39; Units: %; Status: F Test: THYROXINE (T4); Value: 10.6; Range: 4.5-12.0; Units: UG/DL; Status: F Test: FREE THYROXINE INDEX; Value: 3.7; Range: 1.3-4.8; Units: %; Status: F Test: THYROID STIMULATING HORMONE; Value: 10.700; Range: 0.358-3.740; Abnormal: Above high normal; Units: uIU/ML; Status: F Radiology Order: EKG-ADULT Test: EKG-ADULT REASON FOR EXAMINATION: Syncope; Stationary ECG Study; [facility]; ; Test Date: 2016-10-28; Pat Name: HALINA LIMA Department:; Room: -; Gender: F Parts 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 cs11 02:41 Property :Personal belongings accompany Pt. ka4 02:42 Discharge Assessment: Patient awake and alert. obeys commands, patient administered ka4 narcotics - no. The following High Risk Discharge criteria are identified: None. Discharged to home ambulatory. Condition: good Condition: stable. Discharge instructions given to patient, Instructed on discharge instructions, follow up and referral plans. Demonstrated understanding of instructions, Pt was receptive of discharge instructions/ teaching. No special radiology studies were completed. 02:43 Patient left the ED. ka4 Signatures: Dispatcher [employer] EDMS James Almeida, PSA PSA cl Elham Calvo, Reg Reg gb Cody, Saira, UNDERWRITING TECHNICIAN UNDERWRITING TECHNICIAN jessica Cecille Jones, RN RN sls1 Maria A Beal, DO DO cs11 McLear, Halina, UNDERWRITING TECHNICIAN UNDERWRITING TECHNICIAN tmm1 Tamara Richards,PNEUMATIC TUBE REPAIRER PNEUMATIC TUBE REPAIRER ka4 Erica Bryant,RN RN [facility] [place] Jaclyn, Melissa Webber, Reg Reg hs2 Corrections: (The following items were deleted from the chart) 01:45 01:40 THYROID PROFILE+LAB sent. [facility] [place] EDMS 01:46 00:11 THYROID STIMULATING HORMONE+LAB sent. [facility] EDMS Chart Complete MTDD
--- NOTE | 2016-10-30 03:43 | EDDOCDS ---
Physician Documentation [facility] Name: Halina Lima Age: 46 yrs Sex: Female : 1970 Arrival Date: 10/27/2016 Time: 23:07 Bed 2 Private MD: Other - Complete Info On Cds; [facility] [place] Disposition: 10/28/16 02:20 Discharged to Home/Self Care. Impression: Acute stress reaction. - Condition is Stable. - Medication Reconciliation, Local Pharmacy Hours form. - Follow up: Referral list, As provided by PFS; When: Call to arrange an appointment; Reason: Recheck today's complaints. - Problem is an ongoing problem. - Symptoms are unchanged. Historical: - Allergies: No known drug Allergies; - Home Meds: 1. Synthroid 125 mcg Oral tab 1 tab once daily 2. Tylenol PM 25-500 mg-mg/mL Oral soln (Last dose: 10/27/2016 21:00) 3. Macrobid 100 mg Oral cap 1 cap every 12 hours - PMHx: Hypothyroidism; - PSHx: Thyroid Surgery; - Social history: Smoking status: Patient states was never smoker of tobacco. Patient/guardian denies using alcohol, street drugs, No barriers to communication noted, The patient speaks fluent Italian. - Family history: Not pertinent. - : The pt / caregiver states he / she is not on anticoagulants. Home medication list is obtained from the patient. - Exposure Risk Screening:: None identified. 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 6 in. (167.64 cm) (R); Pain 4/10; 23:15 BP 164 / 92 (auto/); mlc 23:16 Pulse 77 MON; Pulse Ox 98% ; mlc 23:30 BP 152 / 83 (auto/); mlc 23:31 Pulse 76 MON; Pulse Ox 99% ; mlc 23:45 BP 178 / 89 (auto/); mlc 23:46 Pulse 77 MON; Pulse Ox 100% ; mlc 10/28 00:00 BP 165 / 88 (auto/); mlc 00:01 Pulse 74 MON; Pulse Ox 100% ; mlc 00:15 BP 172 / 101 (auto/); mlc 00:17 Pulse 75 MON; Pulse Ox 100% ; mlc 00:30 BP 156 / 96 (auto/); mlc 00:31 Pulse 73 MON; Pulse Ox 100% ; mlc 00:45 BP 160 / 94 (auto/); mlc 00:46 Pulse 78 MON; Pulse Ox 99% ; mlc 01:00 BP 162 / 92 (auto/); mlc 01:01 Pulse 81 MON; Pulse Ox 99% ; mlc 01:24 BP 153 / 79 (auto/); mlc 01:25 Pulse Ox 99% ; mlc 02:35 BP 162 / 92; Pulse 67; Resp 18; Temp 97.2(O); Pulse Ox 99% on R/A; jessica 10/27 23:14 Body Mass Index 24.69 (69.40 kg, 167.64 cm) jessica MDM: 10/27 23:52 Consult PFS/PSA/Automated Cutting Machine Operator ordered. cs11 23:52 Consult PFS/PSA/Automated Cutting Machine Operator: Patient's case requires discussion with on-call [facility] Psychiatrist ordered. 23:52 PSA/PFS to call Nursing Electrical Helper, to enter patient data on [place] if patient cs11 involuntarily admitted or transferred for SI or HI ordered. 23:52 Confirm accurate psychiatric medication list and times of last dosage ordered. cs11 23:52 Detain Pt Until Medically/PFS Cleared ordered. cs11 23:52 IV Saline Lock ordered. cs11 23:53 Acetaminophen Level Ordered. EDMS 23:53 Basic Metabolic Profile Ordered. EDMS 23:53 Complete Blood Count Ordered. EDMS 23:53 Drug Eval Toxicology ED Only Ordered. EDMS 23:53 Ethyl Alcohol (ethanol) Ordered. EDMS 23:53 Liver Profile Ordered. EDMS 23:53 Salicylate Level Ordered. EDMS 23:54 ECG WITH READING ER PHYS+CARDIAG ordered. EDMS 10/28 00:40 [facility] [place] Payment Agreement was scanned into [employer] and attached to record. lja 00:40 Financial registration complete. lja 01:32 Basic Metabolic Profile Reviewed. cs11 01:32 Salicylate Level Reviewed. cs11 01:32 Acetaminophen Level Reviewed. cs11 01:32 Complete Blood Count Reviewed. cs11 01:32 Drug Eval Toxicology ED Only Reviewed. cs11 01:32 Ethyl Alcohol (ethanol) Reviewed. cs11 01:32 Liver Profile Reviewed. cs11 01:46 THYROID PROFILE Ordered. EDMS 01:55 Basic Metabolic Profile Reviewed. cs11 01:55 Salicylate Level Reviewed. cs11 01:55 Acetaminophen Level Reviewed. cs11 01:55 Ethyl Alcohol (ethanol) Reviewed. cs11 01:55 Liver Profile Reviewed. cs11 02:03 Basic Metabolic Profile Reviewed. cs11 02:03 Salicylate Level Reviewed. cs11 02:03 THYROID PROFILE Reviewed. cs11 02:03 Acetaminophen Level Reviewed. cs11 02:03 Ethyl Alcohol (ethanol) Reviewed. cs11 02:03 Liver Profile Reviewed. cs11 02:04 Consult PFS/PSA/Socail Worker: Cleared medically for eval ordered. cs11 02:28 Consult PFS/PSA/Socail Worker: Cleared medically for eval complete. cl 02:28 Consult PFS/PSA/Automated Cutting Machine Operator complete. cl 02:28 Consult PFS/PSA/Automated Cutting Machine Operator: Patient's case requires discussion with on-call cl Psychiatrist complete. 02:28 PSA/PFS to call Nursing Electrical Helper, to enter patient data [place] if patient cl involuntarily admitted or transferred for SI or HI complete. 05:58 T-Sheet-- Draft Copy was scanned into [employer] and attached to record. hs2 12:03 ECG/EKG was scanned into [employer] and attached to record. gb Administered Medications: 00:11 CANCELLED (Patient Refused): NS 0.9% 1000 ml IV at bolus once sls1 Signatures: Dispatcher [employer] EDMS James Almeida PSA PSA cl Elham Calvo, Reg Reg gb Ramirez Hansen, DO DO cs11 Tamara Richards LPN LPN ka4 Erica Bryant,RN RN mlc Arel, Melissa Webber, Reg Reg hs2 Cecille Jones RN sls1 The chart was reviewed and I authenticate all verbal orders and agree with the evaluation and treatment provided.Corrections: (The following items were deleted from the chart) 00:11 10/27 23:52 NS 0.9% 1000 ml IV at bolus once ordered. cs11 sls1 10/28 01:45 01:33 THYROID PROFILE+LAB ordered. EDMS EDMS 01:46 10/27 23:53 THYROID STIMULATING HORMONE+LAB ordered. EDMS EDMS 10/28 01:46 01:32 THYROID STIMULATING HORMONE+LAB reviewed. cs11 EDMS Attachments: 00:40 [facility] Payment Agreement lja 05:58 T-Sheet-- Draft Copy hs2 12:03 ECG/EKG gb Chart Complete MTDD
--- NOTE | 2016-10-30 03:43 | EDDOCDS ---
Physician Documentation [facility] Name: Halina Lima Age: 46 yrs Sex: Female : 1970 Arrival Date: 10/27/2016 Time: 23:07 Bed 2 Private MD: Other - Complete Info On Cds; Yolanda [facility] [place] Disposition: 10/28/16 02:20 Discharged to Home/Self Care. Impression: Acute stress reaction. - Condition is Stable. - Medication Reconciliation, Local Pharmacy Hours form. - Follow up: Referral list, As provided by PFS; When: Call to arrange an appointment; Reason: Recheck today's complaints. - Problem is an ongoing problem. - Symptoms are unchanged. Historical: - Allergies: No known drug Allergies; - Home Meds: 1. Synthroid 125 mcg Oral tab 1 tab once daily 2. Tylenol PM 25-500 mg-mg/mL Oral soln (Last dose: 10/27/2016 21:00) 3. Macrobid 100 mg Oral cap 1 cap every 12 hours - PMHx: Hypothyroidism; - PSHx: Thyroid Surgery; - Social history: Smoking status: Patient states was never smoker of tobacco. Patient/guardian denies using alcohol, street drugs, No barriers to communication noted, The patient speaks fluent French. - Family history: Not pertinent. - : The pt / caregiver states he / she is not on anticoagulants. Home medication list is obtained from the patient. - Exposure Risk Screening:: None identified. 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 6 in. (167.64 cm) (R); Pain 4/10; 23:15 BP 164 / 92 (auto/); mlc 23:16 Pulse 77 MON; Pulse Ox 98% ; mlc 23:30 BP 152 / 83 (auto/); mlc 23:31 Pulse 76 MON; Pulse Ox 99% ; mlc 23:45 BP 178 / 89 (auto/); mlc 23:46 Pulse 77 MON; Pulse Ox 100% ; mlc 10/28 00:00 BP 165 / 88 (auto/); mlc 00:01 Pulse 74 MON; Pulse Ox 100% ; mlc 00:15 BP 172 / 101 (auto/); mlc 00:17 Pulse 75 MON; Pulse Ox 100% ; mlc 00:30 BP 156 / 96 (auto/); mlc 00:31 Pulse 73 MON; Pulse Ox 100% ; mlc 00:45 BP 160 / 94 (auto/); mlc 00:46 Pulse 78 MON; Pulse Ox 99% ; mlc 01:00 BP 162 / 92 (auto/); mlc 01:01 Pulse 81 MON; Pulse Ox 99% ; mlc 01:24 BP 153 / 79 (auto/); mlc 01:25 Pulse Ox 99% ; mlc 02:35 BP 162 / 92; Pulse 67; Resp 18; Temp 97.2(O); Pulse Ox 99% on R/A; jessica 10/27 23:14 Body Mass Index 24.69 (69.40 kg, 167.64 cm) jessica MDM: 10/27 23:52 Consult PFS/PSA/Computer Network And Systems Engineer ordered. cs11 23:52 Consult PFS/PSA/Computer Network And Systems Engineer: Patient's case requires discussion with on-call [facility] Psychiatrist ordered. 23:52 PSA/PFS to call Nursing Freight Sorter, to enter [place] data [place] if patient cs11 involuntarily admitted or transferred for SI or HI ordered. 23:52 Confirm accurate psychiatric medication list and times of last dosage ordered. cs11 23:52 Detain Pt Until Medically/PFS Cleared ordered. cs11 23:52 IV Saline Lock ordered. cs11 23:53 Acetaminophen Level Ordered. EDMS 23:53 Basic Metabolic Profile Ordered. EDMS 23:53 Complete Blood Count Ordered. EDMS 23:53 Drug Eval Toxicology ED Only Ordered. EDMS 23:53 Ethyl Alcohol (ethanol) Ordered. EDMS 23:53 Liver Profile Ordered. EDMS 23:53 Salicylate Level Ordered. EDMS 23:54 ECG WITH READING ER PHYS+CARDIAG ordered. EDMS 10/28 00:40 [facility] [place] was scanned into [employer] and attached to record. lja 00:40 Financial registration complete. lja 01:32 Basic Metabolic Profile Reviewed. cs11 01:32 Salicylate Level Reviewed. cs11 01:32 Acetaminophen Level Reviewed. cs11 01:32 Complete Blood Count Reviewed. cs11 01:32 Drug Eval Toxicology ED Only Reviewed. cs11 01:32 Ethyl Alcohol (ethanol) Reviewed. cs11 01:32 Liver Profile Reviewed. cs11 01:46 THYROID PROFILE Ordered. EDMS 01:55 Basic Metabolic Profile Reviewed. cs11 01:55 Salicylate Level Reviewed. cs11 01:55 Acetaminophen Level Reviewed. cs11 01:55 Ethyl Alcohol (ethanol) Reviewed. cs11 01:55 Liver Profile Reviewed. cs11 02:03 Basic Metabolic Profile Reviewed. cs11 02:03 Salicylate Level Reviewed. cs11 02:03 THYROID PROFILE Reviewed. cs11 02:03 Acetaminophen Level Reviewed. cs11 02:03 Ethyl Alcohol (ethanol) Reviewed. cs11 02:03 Liver Profile Reviewed. cs11 02:04 Consult PFS/PSA/Socail Worker: Cleared medically for eval ordered. cs11 02:28 Consult PFS/PSA/Socail Worker: Cleared medically for eval complete. cl 02:28 Consult PFS/PSA/Computer Network And Systems Engineer complete. cl 02:28 Consult PFS/PSA/Computer Network And Systems Engineer: Patient's case requires discussion with on-call cl Psychiatrist complete. 02:28 PSA/PFS to call Nursing Freight Sorter, to enter [place] if patient cl involuntarily admitted or transferred for SI or HI complete. 05:58 T-Sheet-- Draft Copy was scanned into [employer] and attached to record. hs2 12:03 ECG/EKG was scanned into [employer] and attached to record. gb Administered Medications: 00:11 CANCELLED (Patient Refused): NS 0.9% 1000 ml IV at bolus once sls1 Signatures: Dispatcher [employer] EDMS James Almeida PSA PSA cl Elham Calvo, Reg Reg gb Ramirez Hansen, DO DO cs11 Tamara Richards LPN LPN ka4 Erica Bryant,RN RN mlc Arel, Melissa Webber, Reg Reg hs2 Cecille Jones RN sls1 The chart was reviewed and I authenticate all verbal orders and agree with the evaluation and treatment provided.Corrections: (The following items were deleted from the chart) 00:11 10/27 23:52 NS 0.9% 1000 ml IV at bolus once ordered. cs11 sls1 10/28 01:45 01:33 THYROID PROFILE+LAB ordered. EDMS EDMS 01:46 10/27 23:53 THYROID STIMULATING HORMONE+LAB ordered. EDMS EDMS 10/28 01:46 01:32 THYROID STIMULATING HORMONE+LAB reviewed. cs11 EDMS Attachments: 00:40 [facility] Payment Agreement lja 05:58 T-Sheet-- Draft Copy hs2 12:03 ECG/EKG gb Chart Complete MTDD
== END 2016-10-28 02:43 | disposition home or self-care (01) ==
LOC: M ED 23:07
DX: F43.9 Reaction to severe stress, unspecified (principal); E03.9 Hypothyroidism, unspecified; Z79.899 Other long term (current) drug therapy
CPT/HCPCS: 36415; 80048; 80076; 80306; 84436; 84443; 84479; 85027; 93005; 99284; G0480

== ENCOUNTER → 2018-03-26 | Outpatient (CLI) | payer OTHER ==
[~2018-03-26] MED LIST: ISOVUE-370 76% 100ML VIAL (Q9967) As Ordered
== END ==
LOC: M RAD 07:19
DX: Z00.5 Encounter for examination of potential donor of organ and tissue (principal); R31.29 Other microscopic hematuria
CPT/HCPCS: Q9967

== ENCOUNTER → 2018-03-27 | Outpatient (REF) | payer OTHER ==
[2018-03-27 14:24] LABS: BACTERIA, URINE AUTO NEGATIVE (NEGATIVE); RBC, URINE AUTO 0 /HPF (0-3); SQUAMOUS EPITHELIAL CELL UR AU 0 /HPF (0-6); WBC, URINE AUTO 0 /HPF (0-3)
[2018-03-27 14:33] LABS: CREATININE,RANDOM URINE < 13.0 MG/DL; TOTAL PROTEIN,RANDOM URINE < 5.0 MG/DL (0.0-12.0)
== END ==
LOC: M LAB REF 13:42
DX: R31.29 Other microscopic hematuria (principal); R80.9 Proteinuria, unspecified
CPT/HCPCS: 82570

== ENCOUNTER → 2018-04-20 | Outpatient (CLI) | payer OTHER ==
[2018-04-20 09:12] LABS: BASO # 0.1 10^3/uL (0.0-0.2); BASO % 1.3 % (0.0-1.0); EOS # 0.1 10^3/uL (0.0-0.50); EOS % 1.5 % (0.0-3.0); HEMATOCRIT 37.8 % (36.0-47.0); HEMOGLOBIN 12.6 g/dl (12.0-15.5); IMMATURE GRANULOCYTE % 0.2 % (0-3.0); LYMPH # 1.9 10^3/uL (1.5-4.5); LYMPH % 34.3 % (24.0-44.0); MEAN CORPUSCULAR HEMOGLOBIN 30.1 pg (27.0-33.0); MEAN CORPUSCULAR HGB CONC 33.3 g/dl (32.0-36.5); MEAN CORPUSCULAR VOLUME 90.4 fl (80.0-96.0); MONO # 0.4 10^3/uL (0.0-0.8); MONO % 8.1 % (0.0-5.0); NEUTROPHILS % 54.6 % (36.0-66.0); PLATELET COUNT, AUTOMATED 285 10^3/uL (150-450); RED BLOOD COUNT 4.18 10^6/uL (4.00-5.40); RED CELL DISTRIBUTION WIDTH 13.3 % (11.5-14.5); WHITE BLOOD COUNT 5.4 10^3/uL (4.0-10.0)
[2018-04-20 09:21] LABS: INR 0.93; PROTHROMBIN TIME 12.5 SECONDS (12.4-14.5)
== END ==
LOC: M LAB 08:21
DX: Z00.5 Encounter for examination of potential donor of organ and tissue (principal)
CPT/HCPCS: 85610

== ENCOUNTER → 2018-04-23 | Outpatient (CLI) | payer OTHER ==
[~2018-04-23] MED LIST changes: -ISOVUE-370 76% 100ML VIAL (Q9967) As Ordered; +LIDOCAINE 1% MDV 20ML VIAL As Ordered
== END ==
LOC: M RADPRO 10:42
DX: Z00.5 Encounter for examination of potential donor of organ and tissue (principal); R31.29 Other microscopic hematuria; Z79.899 Other long term (current) drug therapy
CPT/HCPCS: 50200

== ENCOUNTER → 2018-05-31 | Outpatient (CLI) | payer OTHER | LOC: M SLEEP 20:00 | DX: G47.30 Sleep apnea, unspecified (principal) | CPT/HCPCS: 95810 ==

== ENCOUNTER → 2018-09-28 | Outpatient (CLI) | payer OTHER | LOC: M RAD 09:56 | DX: Z12.31 Encounter for screening mammogram for malignant neoplasm of breast (principal) | CPT/HCPCS: 77067 ==

== ENCOUNTER → 2019-08-20 | Outpatient (CLI) | payer OTHER ==
[~2019-08-20] MED LIST changes: +E-Z-GAS II EFFERVESCENT PACKET (SODIUM BICARB./CITRIC ACID/SIMETHICONE) As Ordered ONE; +E-Z-HD 98% w/w 340GM SUSP BTL As Ordered ONE; +E-Z-PAQUE 96% w/w SUSP 176GM BTL As Ordered ONE; -LIDOCAINE 1% MDV 20ML VIAL As Ordered
--- NOTE | 2019-08-21 17:52 | REP ---
Examination Requested: Esophagram Barium Swallow Reason For Exam/Comment: Dysphasia Esophagram: The procedure was performed KEIRY Mcknight, under the direct supervision of Dr. Morel. The images were reviewed with Dr. Morel. A single PA chest x-ray is submitted as a salesperson men's and boys' clothing film. The superior mediastinal structures are midline. The heart size is within normal limits. The lungs are clear. Liquid barium and gas producing granules were given in the erect position as well as liquid barium in the prone oblique position, in order to perform a double contrast esophagram examination. Oral and pharyngeal stages of the examination were unremarkable. Esophageal transport is efficient and there is no esophagitis, stricture, or mucosal ring noted. There is no hiatal hernia noted. Gastroesophageal reflux was not visualized throughout the course of the exam. Impression: 1. Unremarkable esophagram. 0.4 minutes of fluoroscopy time was utilized for this procedure. Some fluoroscopic images are performed with last image hold technology. These images require no additional radiation. Reviewed by KEIRY Torrez 08/20/2019 04:30 P Electronically Signed by Andrzej Morel MD 08/21/2019 05:42 P
== END ==
LOC: M RAD 08:54
PROVIDERS: ATTEND Otolaryngology
DX: K22.5 Diverticulum of esophagus, acquired (principal)

== ENCOUNTER → 2019-11-08 | Outpatient (CLI) | payer OTHER ==
--- NOTE | 2019-11-08 09:12 | REPMRS ---
Patient History The patient states she has not had a clinical breast exam in over a year. No known family history of cancer. Digital Woman Screen Mammo: November 08, 2019 - Exam #: [id number] Bilateral CC and MLO view(s) were taken. Technologist: Mari Noble, Technologist Prior study comparison: September 28, 2018, bilateral digital mammo screening bilat, performed at [facility]. October 23, 2012, bilateral digital mammo diagnostic unilateral, performed at [facility]. October 06, 2012, bilateral digital mammo screening bilat, performed at [facility]. FINDINGS: The breast tissue is heterogeneously dense. This may lower the sensitivity of mammography. There is a moderate amount of heterogeneously dense fibroglandular tissue which is fairly symmetric. There is no interval development of dominant mass, architectural distortion, or grouped microcalcification typical of malignancy. There has been no change in the appearance of the mammogram from the prior studies. 3-D tomosynthesis shows no additional findings. Assessment: BI-RADS/ACR category 1 mammogram. Negative Mammogram. Recommendation Routine screening mammogram of both breasts in 1 year (for women over age 40). This patient's Lifetime Breast Cancer RIsk is estimated at 8.4 %. This mammogram was interpreted with the aid of an FDA-approved computer-aided dectection system. Electronically Signed By: Levi Morales MD 11/08/19 0912
== END ==
LOC: M WHC 08:07
PROVIDERS: ATTEND Internal Medicine
DX: Z12.31 Encounter for screening mammogram for malignant neoplasm of breast (principal)

== ENCOUNTER 2020-10-18 23:36 | Emergency (ER) | payer MEDICARE, OTHER ==
[2020-10-18 23:47] VITALS: BP 157/80
[2020-10-18] MEDS ORDERED: SYNT112T2 PO (23:58)
[2020-10-19] MEDS ORDERED: SYNT112T2 PO (01:01)
[2020-10-19] MEDS ORDERED: LEVOTHYROXINE 112MCG TABLET (0.112MG) PO ONE (01:15)
== END 2020-10-19 01:26 | disposition home or self-care (01) ==
LOC: M ED 23:36
DX: Z76.0 Encounter for issue of repeat prescription (principal); E03.9 Hypothyroidism, unspecified; Z79.890 Hormone replacement therapy

== ENCOUNTER → 2020-11-17 | Outpatient (CLI) | payer OTHER ==
[~2020-11-17] MED LIST changes: -E-Z-GAS II EFFERVESCENT PACKET (SODIUM BICARB./CITRIC ACID/SIMETHICONE) As Ordered ONE; -E-Z-HD 98% w/w 340GM SUSP BTL As Ordered ONE; -E-Z-PAQUE 96% w/w SUSP 176GM BTL As Ordered ONE; +SYNT112T2 PO
--- NOTE | 2020-11-17 11:18 | REP ---
INDICATION: JIL SCR MAMMO/Z12.31. COMPARISON: 11/08/2019 as well as other prior exams. TECHNIQUE: MLO and CC views bilateral breasts performed with tomosynthesis. FINDINGS: Moderate heterogeneous fibroglandular tissue is present bilaterally. There is a smoothly marginated nodule in the posterior central right breast about the level of the nipple, slightly medially measuring 1.5 cm in diameter. There may be an adjacent oval nodule just inferior to this with a maximum diameter of 9 mm, that nodules only seen in the CC projection. Otherwise there is no other evidence of mass or architectural distortion. No clustered microcalcifications are seen. The Volpara volumetric breast density pattern is C. IMPRESSION: BIRADS/ACR category 0, incomplete. Smoothly marginated nodule posteriorly, centrally and slightly medially in the right breast the maximum diameter of 1.5 cm. Possible subtle adjacent oval nodule just inferior to that with a maximum diameter of 9 mm. Recommend spot compression views and ultrasound to further evaluate. This patient's Tyrer-Cuzick lifetime breast cancer risk assessment score is 8.2%. This mammogram was interpreted with the aid of an FDA-approved computer-aided detection system. The patient states she had a clinical breast exam in over 1 year ago. The patient letter being requested is M0. RECOMMENDATION: Recommend spot compression views and ultrasound right breast as discussed above. <Electronically signed by Andrzej Morel > 11/17/20 [id number]
== END ==
LOC: M WHC 09:56
PROVIDERS: ATTEND Internal Medicine
DX: R92.2 Inconclusive mammogram (principal)

== ENCOUNTER → 2020-12-15 | Outpatient (CLI) | payer OTHER ==
--- NOTE | 2020-12-15 14:01 | REP ---
INDICATION: ADDITIONAL VIEWS RT BREAST. COMPARISON: Comparison mammography 17 November 2020, 28 September 2018. TECHNIQUE: Magnified focal spot-compression CC, MLO, and mL views of the right breast are obtained. A tomographic study of the right breast is obtained in the mediolateral projection. Targeted right breast sonography is carried out. This mammogram was interpreted with the aid of an FDA-approved computer-aided detection system. FINDINGS: Diagnostic imaging of the of the right breast confirms the presence of a well circumscribed 10 mm nodule at approximately the 12 o'clock position of the right breast middle to posterior 3rd. Breast parenchyma remains heterogeneously dense. No other mammographic abnormality is seen. 3D tomographic images show no additional abnormality. The nodule is actually not very well seen in the mediolateral projection but is visible on MLO and CC views. The Volpara volumetric breast density pattern is C. Targeted ultrasound: Targeted right breast sonography is carried out. Heterogeneous fibroglandular background echotexture is seen. There are 2 cysts identified at the 12 o'clock position approximately 2 cm from the nipple. The larger of these measures 1.1 x 1.2 x 0.9 cm. This is felt to account for the mammographic opacity. It is benign by ultrasound criteria. The other is 0.4 cm in greatest diameter and also appears to be a simple cyst by sonographic criteria. No suspicious sonographic finding. IMPRESSION: BIRADS/ACR category 2 benign right breast mammographic and sonographic findings. The mammographic opacity is due to a simple cyst. This patient's Tyrer-Cuzick lifetime breast cancer risk assessment score is 8.2%. RECOMMENDATION: Repeat screening mammography recommended 1 year (for women over 40). The patient letter being requested is M1 dense. <Electronically signed by Levi Morales > 12/15/20 [id number]
== END ==
LOC: M WHC 09:51
PROVIDERS: ATTEND Internal Medicine
DX: N60.01 Solitary cyst of right breast (principal)

== ENCOUNTER → 2021-01-27 | Outpatient (CLI) | payer OTHER ==
[~2021-01-27] MED LIST changes: +COQ-100C5 PO; +ROSU5TAB5 PO; +SERT-141 PO
== END ==
LOC: M LABSMTC 08:30
PROVIDERS: ATTEND Anesthesiology
DX: Z01.812 Encounter for preprocedural laboratory examination (principal); Z20.822 Contact with and (suspected) exposure to COVID-19

== ENCOUNTER 2021-02-01 09:06 | Day surgery (SDC) | payer OTHER ==
[~2021-02-01] VITALS: Ht 167.6 cm; Wt 69.4 kg
[~2021-02-01 09:06] MED LIST changes: +LIDOCAINE 2% 100MG/5ML SDV (FOR ANES.) As Ordered ONE; +NS 1,000 ML IV ONE; +fentaNYL 100 MCG/2 ML INJECTION (J3010) As Ordered ONE; +propofoL 200 MG/20 ML VIAL As Ordered ONE
--- NOTE | 2021-02-01 11:24 | ROOR ---
Patient Name: Halina Lima Procedure Date: 02/01/2021 10:38 AM Date of : 1970 Age: 51 Room: [facility] Gender: Female Note Status: Finalized Procedure: Upper GI endoscopy Indications: Globus sensation Providers: Maurilio Santillan MD Referring MD: [facility], Admin. Requesting Provider: Medicines: Monitored Anesthesia Care Complications: No immediate complications. Procedure: Pre-Anesthesia Assessment: - Prior to the procedure, a History and Physical was performed, and patient medications and allergies were reviewed. The patient is competent. The risks and benefits of the procedure and the sedation options and risks were discussed with the patient. All questions were answered and informed consent was obtained. Patient identification and proposed procedure were verified by the physician, the nurse and the extractive metallurgist in the procedure room. Mental Status Examination: alert and oriented. Airway Examination: normal oropharyngeal airway and neck mobility. Prophylactic Antibiotics: The patient does not require prophylactic antibiotics. Prior Anticoagulants: The patient has taken no previous anticoagulant or antiplatelet agents. ASA Grade Assessment: II - A patient with mild systemic disease. After reviewing the risks and benefits, the patient was deemed in satisfactory condition to undergo the procedure. The anesthesia plan was to use monitored anesthesia care (MAC). Immediately prior to administration of medications, the patient was re-assessed for adequacy to receive sedatives. The heart rate, respiratory rate, oxygen saturations, blood pressure, adequacy of pulmonary ventilation, and response to care were monitored throughout the procedure. The physical status of the patient was re-assessed after the procedure. The Endoscope was introduced through the mouth, and advanced to the second part of duodenum. The upper GI endoscopy was accomplished without difficulty. The patient tolerated the procedure well. Findings: The Z-line was irregular. The exam of the esophagus was otherwise normal. The entire examined stomach was normal. The first portion of the duodenum and second portion of the duodenum were normal. Impression: - Z-line irregular. - Normal stomach. - Normal first portion of the duodenum and second portion of the duodenum. - No specimens collected. Recommendation: - Discharge patient to home. - Resume previous diet. - Continue present medications. Procedure Code(s): --- Professional --- 57469, Esophagogastroduodenoscopy, flexible, transoral; diagnostic, including collection of specimen(s) by brushing or washing, when performed (separate procedure) Diagnosis Code(s): --- Professional --- K22.8, Other specified diseases of esophagus F45.8, Other somatoform disorders CPT copyright 2019 [employer]. All rights reserved. The codes documented in this report are preliminary and upon outpatient coder review may be revised to meet current compliance requirements. Maurilio Santillan MD Maurilio Santillan MD 02/01/2021 11:24:45 AM Electronically signed by Maurilio Santillan MD Number of Addenda: 0 Note Initiated On: 02/01/2021 10:38 AM Estimated Blood Loss: Estimated blood loss: none.
--- NOTE | 2021-02-01 11:33 | ROOR ---
Patient Name: Halina Lima Procedure Date: 02/01/2021 10:38 AM Date of : 1970 Age: 51 Room: [facility] Gender: Female Note Status: Finalized Procedure: Colonoscopy Indications: Screening for colorectal malignant neoplasm, This is the patient's first colonoscopy Providers: Maurilio Santillan MD Referring MD: [facility], Admin. Requesting Provider: Medicines: Monitored Anesthesia Care Complications: No immediate complications. Procedure: Pre-Anesthesia Assessment: - Prior to the procedure, a History and Physical was performed, and patient medications and allergies were reviewed. The patient is competent. The risks and benefits of the procedure and the sedation options and risks were discussed with the patient. All questions were answered and informed consent was obtained. Patient identification and proposed procedure were verified by the physician, the nurse and the motor vehicle license clerk in the procedure room. Mental Status Examination: alert and oriented. Airway Examination: normal oropharyngeal airway and neck mobility. Prophylactic Antibiotics: The patient does not require prophylactic antibiotics. Prior Anticoagulants: The patient has taken no previous anticoagulant or antiplatelet agents. ASA Grade Assessment: II - A patient with mild systemic disease. After reviewing the risks and benefits, the patient was deemed in satisfactory condition to undergo the procedure. The anesthesia plan was to use monitored anesthesia care (MAC). Immediately prior to administration of medications, the patient was re-assessed for adequacy to receive sedatives. The heart rate, respiratory rate, oxygen saturations, blood pressure, adequacy of pulmonary ventilation, and response to care were monitored throughout the procedure. The physical status of the patient was re-assessed after the procedure. The Colonoscope was introduced through the anus and advanced to the cecum, identified by appendiceal orifice and ileocecal valve. The colonoscopy was performed without difficulty. The patient tolerated the procedure well. The quality of the bowel preparation was excellent. Findings: The perianal and digital rectal examinations were normal. The colon (entire examined portion) appeared normal. Impression: - The entire examined colon is normal. - No specimens collected. Recommendation: - Discharge patient to home. - Resume previous diet. - Continue present medications. Procedure Code(s): --- Professional --- 47387, Colonoscopy, flexible; diagnostic, including collection of specimen(s) by brushing or washing, when performed (separate procedure) Diagnosis Code(s): --- Professional --- Z12.11, Encounter for screening for malignant neoplasm of colon CPT copyright 2019 [employer]. All rights reserved. The codes documented in this report are preliminary and upon hose turner review may be revised to meet current compliance requirements. Maurilio Santillan MD Maurilio Santillan MD 02/01/2021 11:33:06 AM Electronically signed by Maurilio Santillan MD Number of Addenda: 0 Note Initiated On: 02/01/2021 10:38 AM Estimated Blood Loss: Estimated blood loss: none.
[2021-02-01 11:45] VITALS: BP 173/86
== END 2021-02-01 11:52 | disposition home or self-care (01) ==
LOC: M OPP 09:06
PROVIDERS: ATTEND Surgery
DX: Z12.11 Encounter for screening for malignant neoplasm of colon (principal); K22.8 Other specified diseases of esophagus; F45.8 Other somatoform disorders; Z79.899 Other long term (current) drug therapy
CPT/HCPCS: 43235; 45378; J3010

== ENCOUNTER → 2021-02-23 | Outpatient (REF) ==
[~2021-02-23] MED LIST changes: -LIDOCAINE 2% 100MG/5ML SDV (FOR ANES.) As Ordered ONE; -NS 1,000 ML IV ONE; -fentaNYL 100 MCG/2 ML INJECTION (J3010) As Ordered ONE; -propofoL 200 MG/20 ML VIAL As Ordered ONE
--- NOTE | 2021-02-23 12:56 | REP ---
INDICATION: DDD. COMPARISON: None. TECHNIQUE: AP and lateral views are obtained. FINDINGS: Lumbar vertebral body heights are preserved. Alignment is normal. There is no evidence of spondylolysis or spondylolisthesis. Spina bifida occulta is noted incidentally at L5. Pedicles and posterior elements are otherwise intact. Psoas margins are symmetric. Sacrum and SI joints are unremarkable. There is mild discogenic spurring anteriorly at L4-5, L3-4, and L2-3. Minimal disc space narrowing is seen at L4-5. IMPRESSION: Minimal degenerative spondylosis changes. Otherwise negative lumbar spine radiographs. <Electronically signed by Levi Morales > 02/23/21 [id number]
== END ==
LOC: M RAD 12:22
PROVIDERS: ATTEND Internal Medicine
DX: M47.812 Spondylosis without myelopathy or radiculopathy, cervical region (principal); Q76.0 Spina bifida occulta

== ENCOUNTER → 2022-01-25 | Outpatient (CLI) | payer OTHER | LOC: M WHC 09:56 | PROVIDERS: ATTEND Internal Medicine | DX: Z12.31 Encounter for screening mammogram for malignant neoplasm of breast (principal); N60.11 Diffuse cystic mastopathy of right breast; N60.12 Diffuse cystic mastopathy of left breast ==

== ENCOUNTER → 2023-03-27 | Outpatient (CLI) | payer OTHER ==
[2023-03-27 14:09] LABS: THYROID STIMULATING HORMONE 2.467 uIU/ML (0.55-4.78)
[2023-03-27 14:10] LABS: FREE T4 1.07 NG/DL (0.89-1.76)
== END ==
LOC: M PLALAB 10:39
PROVIDERS: ATTEND Nurse Practitioner Family
DX: E89.0 Postprocedural hypothyroidism (principal)

== ENCOUNTER 2023-04-04 18:18 | Day surgery (SDC) | payer OTHER ==
[~2023-04-04] VITALS: Ht 167.6 cm; Wt 70.3 kg
[2023-04-04 19:28] LABS: BASO # 0.1 10^3/uL (0.0-0.2); BASO % 0.5 % (0.0-1.0); EOS # 0.1 10^3/uL (0.0-0.5); EOS % 0.4 % (0.0-3.0); HEMATOCRIT 38.6 % (36.0-47.0); HEMOGLOBIN 12.8 g/dl (12.0-15.5); LYMPH # 2.4 10^3/uL (1.5-5.0); LYMPH % 20.7 % (24.0-44.0); MEAN CORPUSCULAR HEMOGLOBIN 31.4 pg (27.0-33.0); MEAN CORPUSCULAR HGB CONC 33.2 g/dl (32.0-36.5); MEAN CORPUSCULAR VOLUME 94.6 fl (80.0-96.0); MONO # 0.6 10^3/uL (0.0-0.8); MONO % 5.3 % (2.0-8.0); NEUTROPHILS # 8.4 10^3/uL (1.5-8.5); NEUTROPHILS % 72.7 % (36.0-66.0); PLATELET COUNT, AUTOMATED 268 10^3/uL (150-450); RED BLOOD COUNT 4.08 10^6/uL (4.00-5.40); WHITE BLOOD COUNT 11.5 10^3/uL (4.0-10.0)
[2023-04-04 19:45] LABS: LIPASE 28 U/L (12-53)
[2023-04-04 19:47] LABS: ALBUMIN 4.2 G/DL (3.2-5.2); ALKALINE PHOSPHATASE 56 U/L (46-116); ALT/SGPT 20 U/L (7.0-40); AST/SGOT 11 U/L (<34); BILIRUBIN,DIRECT 0.2 MG/DL (<0.4); BILIRUBIN,TOTAL 0.5 MG/DL (0.3-1.2); BLOOD UREA NITROGEN 12 MG/DL (9-23); CALCIUM LEVEL 10.2 MG/DL (8.5-10.1); CARBON DIOXIDE LEVEL 29 MMOL/L (20-31); CHLORIDE LEVEL 105 MMOL/L (98-107); CREATININE FOR GFR 0.67 MG/DL (0.55-1.30); GLOMERULAR FILTRATION RATE > 60.0 (>51); GLUCOSE, FASTING 93 MG/DL (60-100); POTASSIUM SERUM 4.5 MMOL/L (3.5-5.1); SODIUM LEVEL 139 MMOL/L (136-145); TOTAL PROTEIN 7.2 G/DL (5.7-8.2)
[2023-04-04] MEDS ORDERED: ACETAMINOPHEN 500 MG TAB PO ONE (21:55)
[2023-04-04] MEDS ORDERED: ISOVUE-370 76% 100ML VIAL As Ordered ONE (21:57)
[2023-04-04] MEDS ORDERED: PIPERACILLIN/TAZOBACTAM SOD 3.375 GM in D5W MINI-BAG PLUS 50 ML IV ONE (23:15)
[2023-04-04] MEDS ORDERED: EZET10TA21 PO (23:25)
[2023-04-04] MEDS ORDERED: HOME MED LIST COMPLETE! XX SCH (23:25)
[2023-04-04] MEDS ORDERED: ONDANSETRON 4MG 2ML VIAL IV PRN (23:35)
[2023-04-04] MEDS ORDERED: KETOROLAC 30 MG/ML 1ML VIAL IV PRN (23:35)
[2023-04-04] MEDS ORDERED: PILL CUTTER 1 EACH XX PRN (23:45)
[2023-04-04] MEDS: LR 1,000 ML IV SCH (23:53)
[2023-04-05] VITALS (7 sets, daily range): BP systolic 111–133; BP diastolic 59–72; TEMP 97.7–99; O2SAT 95–100
[2023-04-05 00:40] LABS: INR 0.95; PROTHROMBIN TIME 12.9 SECONDS (12.5-14.5)
[2023-04-05 00:41] LABS: PARTIAL THROMBOPLASTIN TIME 25.5 SECONDS (24.8-34.2)
[2023-04-05 00:58] LABS: RSV AMPLIFICATION NEGATIVE (NEGATIVE)
[2023-04-05] MEDS: LR 1,000 ML IV SCH (02:06)
[2023-04-05] MEDS: ACETAMINOPHEN TAB 650MG DOSE (2X325MG) PO PRN ×2 (05:26→11:26)
[2023-04-05] MEDS: AMPICILLIN SOD/SULBACTAM SOD 3 GM in D5W MINI-BAG PLUS 100 ML IV SCH ×3 (05:26→17:57)
[2023-04-05] MEDS ORDERED: LEVOTHYROXINE 112MCG TABLET (0.112MG) PO SCH (06:00)
[2023-04-05] MEDS ORDERED: LIDOCAINE 1% SDV 30ML VIAL As Ordered ONE (13:29)
[2023-04-05] MEDS ORDERED: fentaNYL 250 MCG/5 ML INJECTION As Ordered ONE (14:06)
[2023-04-05] MEDS ORDERED: ONDANSETRON 4MG 2ML VIAL As Ordered ONE (14:06)
[2023-04-05] MEDS ORDERED: ROCURONIUM BROMIDE 50MG/5ML VIAL As Ordered ONE (14:06)
[2023-04-05] MEDS ORDERED: LIDOCAINE 2% 100MG/5ML SDV (FOR ANES.) As Ordered ONE (14:06)
[2023-04-05] MEDS ORDERED: SUGAMMADEX SODIUM 500 MG/5 ML VIAL (BRIDION) As Ordered ONE (14:06)
[2023-04-05] MEDS ORDERED: MIDAZOLAM INJ 2MG/2ML VIAL As Ordered ONE (14:06)
[2023-04-05] MEDS ORDERED: propofoL 200 MG/20 ML VIAL As Ordered ONE (14:06)
[2023-04-05] MEDS ORDERED: ePHEDrine SULFATE 25 MG/5 ML(5MG/ML) SYRINGE As Ordered ONE (14:10)
[2023-04-05] MEDS ORDERED: ACETAMINOPHEN 1000MG 100ML IV BAG As Ordered ONE (14:13)
[2023-04-05] MEDS ORDERED: oxyCODONE 5MG TAB PO PRN (14:35)
[2023-04-05] MEDS ORDERED: fentaNYL 100 MCG/2 ML INJECTION IV PRN (14:35)
[2023-04-05] MEDS ORDERED: ONDANSETRON 4MG 2ML VIAL IV PRN (14:35)
[2023-04-05] MEDS ORDERED: LR 1,000 ML IV SCH (14:35)
[2023-04-05] MEDS ORDERED: HYDROMORPHONE HCL 0.5 MG/ 0.5 ML SYRINGE IV PRN (14:35)
[2023-04-05] MEDS ORDERED: OXYC1TAB23 PO (14:42)
[2023-04-05] MEDS ORDERED: METOCLOPRAMIDE INJ 10MG/2ML VIAL IV STA (15:20)
[2023-04-05] MEDS ORDERED: EZETIMIBE 10MG TABLET (ZETIA) PO SCH (21:00)
[2023-04-05] MEDS ORDERED: ROSUVASTATIN 10 MG TAB (CRESTOR) PO SCH (21:00)
== END 2023-04-05 19:35 | disposition home or self-care (01) ==
LOC: M ED 18:18 → M SDC 18:19 → M MSPAV 04-05 01:55 → M SDC 04-05 19:35
PROVIDERS: ATTEND Surgery
DX: K35.890 Other acute appendicitis without perforation or gangrene (principal); E03.9 Hypothyroidism, unspecified; G43.909 Migraine, unspecified, not intractable, without status migrainosus; F32.A Depression, unspecified; Z79.899 Other long term (current) drug therapy
CPT/HCPCS: 44970; 80048; 80076; 81000; 81015; 83690; 85025; 85610; 85730; 86850; 86900; 86901; 87086; 87631; 88302; 96361; 96365; 96366; 99284; J0131; J0295; J1100; J1885; J2250; J2405; J2543; J2765; J3010; Q9967

== ENCOUNTER → 2023-04-21 | Outpatient (CLI) | payer OTHER ==
[~2023-04-21] MED LIST changes: +EZET10TA21 PO; +OXYC1TAB23 PO
== END ==
LOC: M WHC 10:28
PROVIDERS: ATTEND Internal Medicine
DX: Z12.31 Encounter for screening mammogram for malignant neoplasm of breast (principal)

== ENCOUNTER → 2023-12-11 | Outpatient (REF) | payer OTHER ==
[2023-12-11 16:46] LABS: APPEARANCE, URINE CLEAR (CLEAR); BACTERIA, URINE AUTO NEGATIVE (NEGATIVE); BILIRUBIN, URINE AUTO NEGATIVE (NEGATIVE); BLOOD, URINE BLOOD 1+ (NEGATIVE); COLOR, URINE YELLOW (YELLOW); GLUCOSE, URINE (UA) AUTO NEGATIVE (NEGATIVE); KETONE, URINE AUTO NEGATIVE (NEGATIVE); LEUKOCYTE ESTERASE, URINE AUTO NEGATIVE (NEGATIVE); MUCUS, URINE SMALL (NEGATIVE); NITRITE, URINE AUTO NEGATIVE (NEGATIVE); PROTEIN, URINE AUTO NEGATIVE (NEGATIVE); RBC, URINE AUTO 3 /HPF (0-3); SPECIFIC GRAVITY URINE AUTO 1.009 (1.002-1.035); SQUAMOUS EPITHELIAL CELL UR AU 0 /HPF (0-6); UROBILINOGEN, URINE AUTO 0.2 mg/dL (0.0-2.0); WBC, URINE AUTO 0 /HPF (0-3)
== END ==
LOC: M SMT 15:24
PROVIDERS: ATTEND Nurse Practitioner Family
DX: R31.29 Other microscopic hematuria (principal)

== ENCOUNTER → 2024-04-23 | Outpatient (CLI) | payer OTHER ==
[~2024-04-23] MED LIST changes: +ROSU5TAB40 PO; -ROSU5TAB5 PO
== END ==
LOC: M WHC 11:07
PROVIDERS: ATTEND Internal Medicine
DX: Z12.31 Encounter for screening mammogram for malignant neoplasm of breast (principal)